=== PATIENT | male | born 1995 | race Caucasian/White ===

== ENCOUNTER 2019-06-12 07:42 | Observation (INO) ==
[2019-06-12] MEDS ORDERED: OLANZapine 10 MG VIAL IM ONE (07:47)
[2019-06-12] MEDS ORDERED: Tdap (Boostrix) Vaccine 0.5 ML SYRINGE IM ONE (07:48)
[2019-06-12 08:42] LABS: Amphetamine Screen,Urine Positive ng/mL (Cutoff=1000); Barbiturate Screen,Urine Negative ng/mL (Cutoff=200); Benzodiazepines Screen,Urine Positive ng/mL (Cutoff=200); Cannabinoid Screen,Urine Positive ng/mL (Cutoff = 50); Cocaine Screen,Urine Negative ng/mL (Cutoff= 300); Opiate Screen,Urine Negative ng/mL (Cutoff=300); Phencyclidine Screen,Urine Negative ng/mL (Cutoff=25)
[2019-06-12 08:43] LABS: Basophils % 0.2 %; Eosinophils % 0.1 %; Hematocrit 44.5 % (37.5-50.1); Hemoglobin 14.6 g/dL (12.9-16.9); Immature Granulocytes % 0.6 % (0-4); Lymphocytes # 3.1 K/mcL (0.6-4.6); Lymphocytes % 19.4 %; Mean Corpuscular HGB Conc 32.8 g/dL (31.6-35.5); Mean Corpuscular Hemoglobin 30.1 pg (28.0-33.3); Mean Corpuscular Volume 91.8 fL (83.0-100.0); Mean Platelet Volume 11.1 fL (9.4-12.4); Monocytes # 1.4 K/mcL (0.0-1.3); Monocytes % 8.4 %; Neutrophils # 11.4 K/mcL (1.6-8.9); Platelet Count 255 K/mcL (140-400); Red Blood Count 4.85 M/mcL (4.19-5.50); Red Cell Distribution Width 12.5 % (11.5-14.5); Segmented Neutrophils % 71.3 %
[2019-06-12 09:00] LABS: Acetaminophen < 10 mcg/mL (10-20); Alanine Aminotransferase 40 Units/L (7-52); Albumin 4.9 g/dL (3.5-5.7); Albumin/Globulin Ratio 2.1 (1.1-2.2); Alkaline Phosphatase 52 Units/L (34-104); Aspartate Amino Transferase 33 Units/L (13-39); BUN/Creatinine Ratio 11 (6-26); Bilirubin,Direct 0.3 mg/dL (0.0-0.2); Bilirubin,Total 1.3 mg/dL (0.3-1.0); Blood Urea Nitrogen 14 mg/dL (6-20); Carbon Dioxide 20 mEq/L (23-29); Chloride 101 mEq/L (98-107); Ethanol < 10 mg/dL (Less than 10); Globulin 2.3 g/dL (2.4-3.5); Glucose 104 mg/dL (70-105); Osmolality,Calculated 279 (280-300); Potassium 3.7 mEq/L (3.5-5.1); Salicylate < 2.5 mg/dL (15.0-30.0); Sodium 134 mEq/L (136-145); Total Protein 7.2 g/dL (6.4-8.9); eGFR For African Americans > 60 (> 60); eGFR For Non-African Americans > 60 (> 60)
[2019-06-12] MEDS ORDERED: haloperidoL 5 MG TABLET PO PRN (16:50)
[2019-06-12] MEDS ORDERED: MOM Conc 10 ML UD.LIQ PO PRN (16:50)
[2019-06-12] MEDS ORDERED: Mag Hydrox/Al Hydrox/Simeth 30 ML UDC PO PRN (16:50)
[2019-06-12] MEDS ORDERED: *HR* LORazepam 2 MG/ML VIAL IM PRN (16:50)
[2019-06-12] MEDS ORDERED: Nicotine 2 MG GUM BC PRN (16:50)
[2019-06-12] MEDS ORDERED: *HR* LORazepam 1 MG TABLET PO PRN (16:50)
[2019-06-12] MEDS ORDERED: Haloperidol Lactate 5 MG/ML VIAL IM PRN (16:50)
[2019-06-12] MEDS ORDERED: traZODone 50 MG TABLET PO PRN (16:50)
[2019-06-12] MEDS ORDERED: Acetaminophen 325 MG TABLET PO PRN (16:50)
[2019-06-12] MEDS: Nicotine 14 MG PATCH.TD24 TD SCH (18:12)
[2019-06-13] MEDS: Nicotine 14 MG PATCH.TD24 TD SCH (11:47)
[2019-06-14 09:09] VITALS: BP 134/79
[2019-06-14] MEDS: Nicotine 14 MG PATCH.TD24 TD SCH (09:14)
== END 2019-06-14 16:40 | disposition home or self-care (01) ==
LOC: 1ANU 07:42 → EMEROOARM 07:42 → 1ANU 17:41
PROVIDERS: ADMIT Psychiatry & Neurology Psychiatry; ATTEND Psychiatry & Neurology Psychiatry

== ENCOUNTER 2019-09-26 06:17 | Inpatient (IN) ==
[2019-09-26 06:58] LABS: Bilirubin,Urine Negative (Negative); Blood,Urine Negative (Negative); Clarity,Urine Clear (Clear); Color,Urine Light-Yellow (Yellow); Glucose,Urine (UA) Normal (Normal); Ketones,Urine Negative (Negative); Leukocyte Esterase,Urine Negative (Negative); Nitrite,Urine Negative (Negative); Protein,Urine Negative (Neg-Trace); Specific Gravity,Urine 1.017 (1.010-1.025); Urobilinogen,Urine Normal (Normal)
[2019-09-26 06:59] LABS: Amphetamine Screen,Urine Negative ng/mL (Cutoff=1000); Barbiturate Screen,Urine Negative ng/mL (Cutoff=200)
[2019-09-26 07:01] LABS: Benzodiazepines Screen,Urine Negative ng/mL (Cutoff=300); Cannabinoid Screen,Urine Positive ng/mL (Cutoff = 50); Cocaine Screen,Urine Negative ng/mL (Cutoff= 300); Opiate Screen,Urine Negative ng/mL (Cutoff=300); Phencyclidine Screen,Urine Negative ng/mL (Cutoff=25)
[2019-09-26 07:18] LABS: Acetaminophen < 10 mcg/mL (10-20); BUN/Creatinine Ratio 9 (6-26); Blood Urea Nitrogen 10 mg/dL (6-20); Calcium 9.8 mg/dL (8.6-10.3); Carbon Dioxide 22 mEq/L (23-29); Chloride 103 mEq/L (98-107); Chol/HDL Ratio 3.5 (0-4.9); Cholesterol 151 mg/dL (< 200); Ethanol < 10 mg/dL (Less than 10); Glucose 133 mg/dL (70-105); HDL Cholesterol 43 mg/dL (40-59); LDL Cholesterol,Calculated 92 mg/dL (< 100); Osmolality,Calculated 289 (280-300); Potassium 3.6 mEq/L (3.5-5.1); Salicylate < 2.5 mg/dL (15.0-30.0); Sodium 139 mEq/L (136-145); Triglycerides 79 mg/dL (< 150); eGFR For African Americans > 60 (> 60); eGFR For Non-African Americans > 60 (> 60)
[2019-09-26 07:39] LABS: Basophils # 0.1 K/mcL (0.0-0.2); Basophils % 0.4 %; Eosinophils # 0.1 K/mcL (0.0-0.6); Eosinophils % 0.5 %; Hematocrit 47.9 % (37.5-50.1); Hemoglobin 16.1 g/dL (12.9-16.9); Immature Granulocytes % 0.7 % (0-4); Lymphocytes # 3.8 K/mcL (0.6-4.6); Lymphocytes % 28.6 %; Mean Corpuscular HGB Conc 33.6 g/dL (31.6-35.5); Mean Corpuscular Hemoglobin 30.1 pg (28.0-33.3); Mean Corpuscular Volume 89.7 fL (83.0-100.0); Mean Platelet Volume 11.2 fL (9.4-12.4); Monocytes # 1.1 K/mcL (0.0-1.3); Monocytes % 7.9 %; Neutrophils # 8.3 K/mcL (1.6-8.9); Platelet Count 302 K/mcL (140-400); Red Blood Count 5.34 M/mcL (4.19-5.50); Red Cell Distribution Width 12.7 % (11.5-14.5); Segmented Neutrophils % 61.9 %; White Blood Count 13.4 K/mcL (4.3-11.1)
[2019-09-26 12:06] LABS: Estimated Average Glucose 131 mg/dl; Hemoglobin A1C 6.2 %
[2019-09-26] MEDS ORDERED: *HR* LORazepam 1 MG TABLET PO PRN (13:54)
[2019-09-26] MEDS ORDERED: *HR* LORazepam 2 MG/ML VIAL IM PRN (13:54)
[2019-09-26] MEDS ORDERED: Mag Hydrox/Al Hydrox/Simeth 30 ML UDC PO PRN (13:54)
[2019-09-26] MEDS ORDERED: Haloperidol Lactate 5 MG/ML VIAL IM PRN (13:54)
[2019-09-26] MEDS ORDERED: Acetaminophen 325 MG TABLET PO PRN (13:54)
[2019-09-26] MEDS ORDERED: haloperidoL 5 MG TABLET PO PRN (13:54)
[2019-09-26] MEDS ORDERED: MOM Conc 10 ML UD.LIQ PO PRN (13:54)
[2019-09-26] MEDS: Nicotine 21 MG PATCH.TD24 TD SCH (16:06)
[2019-09-26 16:35] LABS: Thyroid Stimulating Hormone 4.946 mcIU/mL (0.340-5.600)
[2019-09-27] MEDS: Nicotine 21 MG PATCH.TD24 TD SCH (09:40)
[2019-09-27] MEDS: traZODone 50 MG TABLET PO PRN (21:19)
[2019-09-27] MEDS: hydrOXYzine pamoate 25 MG CAPSULE PO PRN (21:19)
[2019-09-28] MEDS: Nicotine 21 MG PATCH.TD24 TD SCH (08:44)
[2019-09-28] MEDS: hydrOXYzine pamoate 25 MG CAPSULE PO PRN (21:31)
[2019-09-28] MEDS: traZODone 50 MG TABLET PO PRN (21:31)
[2019-09-29] MEDS: Nicotine 21 MG PATCH.TD24 TD SCH (09:48)
[2019-09-29] MEDS: traZODone 50 MG TABLET PO PRN (20:47)
[2019-09-29] MEDS: hydrOXYzine pamoate 25 MG CAPSULE PO PRN (20:47)
[2019-09-30] MEDS: Nicotine 21 MG PATCH.TD24 TD SCH (09:03)
[2019-09-30] MEDS: hydrOXYzine pamoate 25 MG CAPSULE PO PRN (21:01)
[2019-09-30] MEDS: traZODone 50 MG TABLET PO PRN (21:01)
[2019-10-01 09:11] VITALS: BP 135/82
[2019-10-01] MEDS: Nicotine 21 MG PATCH.TD24 TD SCH (09:20)
== END 2019-10-01 16:50 | disposition home or self-care (01) | DRG 753 ==
LOC: EMEROOARM 06:17 → 1ANU 13:51
PROVIDERS: ADMIT Psychiatry & Neurology Psychiatry; ATTEND Psychiatry & Neurology Psychiatry

== ENCOUNTER 2020-01-17 10:00 | Observation (INO) ==
[2020-01-17 11:09] LABS: Basophils # 0.1 K/mcL (0.0-0.2); Basophils % 0.3 %; Eosinophils % 0.1 %; Hematocrit 42.9 % (37.5-50.1); Hemoglobin 14.3 g/dL (12.9-16.9); Immature Granulocytes % 1.2 % (0-4); Mean Corpuscular HGB Conc 33.3 g/dL (31.6-35.5); Mean Corpuscular Hemoglobin 30.4 pg (28.0-33.3); Mean Corpuscular Volume 91.1 fL (83.0-100.0); Monocytes # 1.5 K/mcL (0.0-1.3); Monocytes % 7.7 %; Platelet Count 299 K/mcL (140-400); Red Blood Count 4.71 M/mcL (4.19-5.50); Red Cell Distribution Width 12.7 % (11.5-14.5); Segmented Neutrophils % 75.7 %; White Blood Count 19.7 K/mcL (4.3-11.1)
[2020-01-17 11:33] LABS: Acetaminophen < 10 mcg/mL (10-20); Alanine Aminotransferase 34 Units/L (7-52); Albumin 4.9 g/dL (3.5-5.7); Albumin/Globulin Ratio 1.8 (1.1-2.2); Alkaline Phosphatase 50 Units/L (34-104); Aspartate Amino Transferase 37 Units/L (13-39); BUN/Creatinine Ratio 11 (6-26); Bilirubin,Direct 0.3 mg/dL (0.0-0.2); Bilirubin,Indirect 0.7 mg/dL (0.0-1.0); Blood Urea Nitrogen 14 mg/dL (6-20); Calcium 9.8 mg/dL (8.6-10.3); Carbon Dioxide 19 mEq/L (23-29); Chloride 96 mEq/L (98-107); Chol/HDL Ratio 5.4 (0-4.9); Cholesterol 158 mg/dL (< 200); Creatine Kinase 1065 Units/L (30-223); Ethanol < 10 mg/dL (Less than 10); Globulin 2.7 g/dL (2.4-3.5); Glucose 87 mg/dL (70-105); HDL Cholesterol 29 mg/dL (40-59); LDL Cholesterol,Calculated 107 mg/dL (< 100); Osmolality,Calculated 278 (280-300); Potassium 3.6 mEq/L (3.5-5.1); Salicylate < 2.5 mg/dL (15.0-30.0); Sodium 134 mEq/L (136-145); Total Protein 7.6 g/dL (6.4-8.9); Triglycerides 108 mg/dL (< 150); Troponin I < 0.03 ng/mL (< 0.04); eGFR For African Americans > 60 (> 60); eGFR For Non-African Americans > 60 (> 60)
[2020-01-17 11:37] LABS: Estimated Average Glucose 134 mg/dl
[2020-01-17] MEDS ORDERED: 0.9 % Sodium Chloride 1,000 ML IVC ONE ×2 (11:45→16:32)
[2020-01-17 13:51] LABS: Bilirubin,Urine Negative (Negative); Blood,Urine Negative (Negative); Clarity,Urine Clear (Clear); Color,Urine Light-Yellow (Yellow); Glucose,Urine (UA) Normal (Normal); Ketones,Urine >150 mg/dL (Negative); Leukocyte Esterase,Urine Negative (Negative); Mucus,Urine Few per lpf (None-Few); Nitrite,Urine Negative (Negative); PH,Urine 5.5 pH Units (5.0-8.0); Protein,Urine 50 mg/dL (Neg-Trace); RBC,Urine 0-3 per hpf (0-3); Specific Gravity,Urine 1.028 (1.010-1.025); Squamous Epithelial Cell,Urine Few per hpf (None-Few); Urobilinogen,Urine Normal (Normal); WBC,Urine 0-3 per hpf (0-3)
[2020-01-17 14:00] LABS: Amphetamine Screen,Urine Positive ng/mL (Cutoff=1000); Barbiturate Screen,Urine Negative ng/mL (Cutoff=200); Benzodiazepines Screen,Urine Negative ng/mL (Cutoff=200); Cannabinoid Screen,Urine Positive ng/mL (Cutoff = 50); Cocaine Screen,Urine Negative ng/mL (Cutoff= 300); Opiate Screen,Urine Negative ng/mL (Cutoff=300); Phencyclidine Screen,Urine Negative ng/mL (Cutoff=25)
[2020-01-17] MEDS ORDERED: Haloperidol Lactate 5 MG/ML VIAL IVP PRN (18:01)
[2020-01-17] MEDS ORDERED: Ondansetron 4 MG/2 ML VIAL IVP PRN (18:02)
[2020-01-17] MEDS ORDERED: Naloxone 0.4 MG/ML INJ IVP PRN (18:02)
[2020-01-17] MEDS ORDERED: Ibuprofen 800 MG TABLET PO ONE (18:21)
[2020-01-17] MEDS ORDERED: Acetaminophen 325 MG TABLET PO PRN (20:08)
[2020-01-17] MEDS ORDERED: Nicotine 21 MG PATCH.TD24 TD SCH (20:15)
[2020-01-17] MEDS ORDERED: RisperiDAL 3 MG TABLET PO SCH (21:00)
[2020-01-17] MEDS ORDERED: traZODone 50 MG TABLET PO PRN (22:04)
[2020-01-17] MEDS: *HR* Heparin 5,000 UNIT/ML VIAL SQ SCH (22:25)
[2020-01-17] MEDS: Ringers Solution, Lactated 1,000 ML IVC SCH (22:29)
[2020-01-18] MEDS: Ringers Solution, Lactated 1,000 ML IVC SCH (04:24)
[2020-01-18] MEDS: *HR* Heparin 5,000 UNIT/ML VIAL SQ SCH (05:30)
[2020-01-18 08:14] VITALS: BP 124/86
[2020-01-18 08:28] LABS: Basophils % 0.4 %; Eosinophils # 0.1 K/mcL (0.0-0.6); Hematocrit 40.3 % (37.5-50.1); Hemoglobin 13.4 g/dL (12.9-16.9); Lymphocytes # 2.1 K/mcL (0.6-4.6); Lymphocytes % 30.6 %; Mean Corpuscular HGB Conc 33.3 g/dL (31.6-35.5); Mean Corpuscular Hemoglobin 30.5 pg (28.0-33.3); Mean Corpuscular Volume 91.8 fL (83.0-100.0); Mean Platelet Volume 10.9 fL (9.4-12.4); Monocytes # 0.6 K/mcL (0.0-1.3); Monocytes % 7.9 %; Neutrophils # 4.1 K/mcL (1.6-8.9); Platelet Count 206 K/mcL (140-400); Red Blood Count 4.39 M/mcL (4.19-5.50); Red Cell Distribution Width 12.8 % (11.5-14.5); Segmented Neutrophils % 59.1 %
[2020-01-18 08:47] LABS: BUN/Creatinine Ratio 10 (6-26); Blood Urea Nitrogen 9 mg/dL (6-20); Calcium 8.9 mg/dL (8.6-10.3); Carbon Dioxide 25 mEq/L (23-29); Chloride 102 mEq/L (98-107); Glucose 117 mg/dL (70-105); Osmolality,Calculated 284 (280-300); Potassium 3.4 mEq/L (3.5-5.1); Sodium 137 mEq/L (136-145); eGFR For African Americans > 60 (> 60); eGFR For Non-African Americans > 60 (> 60)
== END 2020-01-18 15:21 ==
LOC: 3BNU 10:00 → EMEROOARM 10:00 → 3BNU 18:55
PROVIDERS: ADMIT Student in an Organized Health Care Education/Training Program; ATTEND Student in an Organized Health Care Education/Training Program

== ENCOUNTER 2020-01-18 15:12 | Inpatient (IN) ==
[2020-01-18] MEDS ORDERED: *HR* LORazepam 2 MG/ML VIAL IM PRN (15:21)
[2020-01-18] MEDS ORDERED: Acetaminophen 325 MG TABLET PO PRN (15:21)
[2020-01-18] MEDS ORDERED: Haloperidol Lactate 5 MG/ML VIAL IM PRN (15:21)
[2020-01-18] MEDS ORDERED: Mag Hydrox/Al Hydrox/Simeth 30 ML UDC PO PRN (15:21)
[2020-01-18] MEDS ORDERED: MOM Conc 10 ML UD.LIQ PO PRN (15:21)
[2020-01-18] MEDS ORDERED: QUEtiapine Fumarate 25 MG TABLET PO PRN (15:21)
[2020-01-18] MEDS ORDERED: *HR* LORazepam 1 MG TABLET PO PRN (15:21)
[2020-01-18] MEDS ORDERED: haloperidoL 5 MG TABLET PO PRN (15:21)
[2020-01-18] MEDS: Nicotine 21 MG PATCH.TD24 TD SCH (18:03)
[2020-01-18] MEDS: RisperiDAL 3 MG TABLET PO SCH (20:27)
[2020-01-18] MEDS: hydrOXYzine pamoate 25 MG CAPSULE PO PRN (20:27)
[2020-01-19] MEDS: Nicotine 21 MG PATCH.TD24 TD SCH (08:35)
[2020-01-19] MEDS ORDERED: Nicotine 21 MG PATCH.TD24 TD SCH (09:00)
[2020-01-19] MEDS: hydrOXYzine pamoate 25 MG CAPSULE PO PRN (20:50)
[2020-01-19] MEDS: RisperiDAL 3 MG TABLET PO SCH (20:50)
[2020-01-20 08:45] VITALS: BP 137/88
[2020-01-20] MEDS: Nicotine 21 MG PATCH.TD24 TD SCH (09:01)
== END 2020-01-20 10:30 | disposition home or self-care (01) | DRG 776 ==
LOC: 1ANU 15:12
PROVIDERS: ADMIT Psychiatry & Neurology Psychiatry; ATTEND Psychiatry & Neurology Psychiatry

== ENCOUNTER 2020-07-28 23:04 | Observation (INO) ==
[2020-07-28] MEDS ORDERED: Haloperidol Lactate 5 MG/ML VIAL IM ONE (23:56)
[2020-07-29 00:30] LABS: Basophils # 0.1 K/mcL (0.0-0.2); Basophils % 0.4 %; Eosinophils # 0.1 K/mcL (0.0-0.6); Eosinophils % 0.7 %; Hematocrit 47.9 % (37.5-50.1); Hemoglobin 16.3 g/dL (12.9-16.9); Immature Granulocytes % 0.5 % (0-4); Lymphocytes # 3.4 K/mcL (0.6-4.6); Lymphocytes % 26.1 %; Mean Corpuscular Hemoglobin 30.5 pg (28.0-33.3); Mean Corpuscular Volume 89.5 fL (83.0-100.0); Monocytes # 1.1 K/mcL (0.0-1.3); Monocytes % 8.1 %; Neutrophils # 8.5 K/mcL (1.6-8.9); Platelet Count 309 K/mcL (140-400); Red Blood Count 5.35 M/mcL (4.19-5.50); Red Cell Distribution Width 12.7 % (11.5-14.5); Segmented Neutrophils % 64.2 %; White Blood Count 13.2 K/mcL (4.3-11.1)
[2020-07-29 00:48] LABS: Acetaminophen < 10 mcg/mL (10-20); BUN/Creatinine Ratio 10 (6-26); Blood Urea Nitrogen 12 mg/dL (6-20); Calcium 9.8 mg/dL (8.6-10.3); Carbon Dioxide 22 mEq/L (23-29); Chloride 101 mEq/L (98-107); Ethanol < 10 mg/dL (Less than 10); Glucose 136 mg/dL (70-105); Osmolality,Calculated 286 (280-300); Potassium 3.9 mEq/L (3.5-5.1); Salicylate < 2.5 mg/dL (15.0-30.0); Sodium 137 mEq/L (136-145); eGFR For African Americans > 60 (> 60); eGFR For Non-African Americans > 60 (> 60)
[2020-07-29 00:50] LABS: Bilirubin,Urine Small (Negative); Blood,Urine Negative (Negative); Clarity,Urine Turbid (Clear); Color,Urine Yellow (Yellow); Glucose,Urine (UA) Normal (Normal); Ketones,Urine Trace mg/dL (Negative); Leukocyte Esterase,Urine Negative (Negative); Mucus,Urine Many per lpf (None-Few); Nitrite,Urine Negative (Negative); Protein,Urine 100 mg/dL (Neg-Trace); RBC,Urine 0-3 per hpf (0-3); Specific Gravity,Urine > 1.030 (1.010-1.025); Squamous Epithelial Cell,Urine Moderate per hpf (None-Few)
[2020-07-29 01:16] LABS: Amphetamine Screen,Urine Positive ng/mL (Cutoff=1000); Barbiturate Screen,Urine Negative ng/mL (Cutoff=200); Benzodiazepines Screen,Urine Negative ng/mL (Cutoff=200); Cannabinoid Screen,Urine Positive ng/mL (Cutoff = 50); Cocaine Screen,Urine Negative ng/mL (Cutoff= 300); Opiate Screen,Urine Negative ng/mL (Cutoff=300); Phencyclidine Screen,Urine Negative ng/mL (Cutoff=25)
[2020-07-29 01:57] LABS: Influenza A PCR Negative (Negative); Influenza B PCR Negative (Negative); Resp. Syncytial Virus PCR Negative (Negative)
[2020-07-29 02:01] LABS: SARS-CoV-2 by PCR (In House) Negative (Negative)
[2020-07-29] MEDS ORDERED: *HR* LORazepam 2 MG/ML VIAL IM PRN (02:39)
[2020-07-29] MEDS ORDERED: hydrOXYzine pamoate 25 MG CAPSULE PO PRN (02:39)
[2020-07-29] MEDS ORDERED: Haloperidol Lactate 5 MG/ML VIAL IM PRN (02:39)
[2020-07-29] MEDS ORDERED: QUEtiapine Fumarate 25 MG TABLET PO PRN (02:39)
[2020-07-29] MEDS ORDERED: haloperidoL 5 MG TABLET PO PRN (02:39)
[2020-07-29] MEDS ORDERED: *HR* LORazepam 1 MG TABLET PO PRN (02:39)
[2020-07-29] MEDS ORDERED: Acetaminophen 325 MG TABLET PO PRN (02:39)
[2020-07-29] MEDS ORDERED: RisperiDONE MICROSPHERES 25 MG/2 ML SYRINGE IM SCH (10:00)
[2020-07-30 09:25] VITALS: BP 155/96
== END 2020-07-30 15:40 | disposition home or self-care (01) ==
LOC: 1ANU 23:04 → EMEROOARM 23:04 → 1ANU 07-29 10:07
PROVIDERS: ADMIT Psychiatry & Neurology Forensic Psychiatry; ATTEND Psychiatry & Neurology Forensic Psychiatry

== ENCOUNTER 2020-11-16 12:49 | Observation (INO) ==
[2020-11-16 14:04] LABS: Basophils # 0.1 K/mcL (0.0-0.2); Basophils % 0.3 %; Eosinophils # 0.1 K/mcL (0.0-0.6); Eosinophils % 0.5 %; Hemoglobin 15.9 g/dL (12.9-16.9); Immature Granulocytes % 0.6 % (0-4); Lymphocytes % 25.6 %; Mean Corpuscular HGB Conc 33.8 g/dL (31.6-35.5); Mean Corpuscular Hemoglobin 30.8 pg (28.0-33.3); Mean Corpuscular Volume 90.9 fL (83.0-100.0); Mean Platelet Volume 11.6 fL (9.4-12.4); Monocytes # 1.1 K/mcL (0.0-1.3); Monocytes % 6.9 %; Neutrophils # 10.2 K/mcL (1.6-8.9); Platelet Count 357 K/mcL (140-400); Red Blood Count 5.17 M/mcL (4.19-5.50); Red Cell Distribution Width 12.7 % (11.5-14.5); Segmented Neutrophils % 66.1 %; White Blood Count 15.4 K/mcL (4.3-11.1)
[2020-11-16 14:24] LABS: Acetaminophen < 10 mcg/mL (10-20); BUN/Creatinine Ratio 9 (6-26); Blood Urea Nitrogen 12 mg/dL (6-20); Calcium 10.4 mg/dL (8.6-10.3); Carbon Dioxide 23 mEq/L (23-29); Chloride 103 mEq/L (98-107); Chol/HDL Ratio 3.7 (0-4.9); Cholesterol 149 mg/dL (< 200); Ethanol < 10 mg/dL (Less than 10); Glucose 130 mg/dL (70-105); HDL Cholesterol 40 mg/dL (40-59); LDL Cholesterol,Calculated 88 mg/dL (< 100); Osmolality,Calculated 294 (280-300); Potassium 3.5 mEq/L (3.5-5.1); Salicylate < 2.5 mg/dL (15.0-30.0); Sodium 141 mEq/L (136-145); Triglycerides 105 mg/dL (< 150); eGFR For African Americans > 60 (> 60); eGFR For Non-African Americans > 60 (> 60)
[2020-11-16 14:26] LABS: Amorphous Sediment,Urine Few per hpf (None-Few); Bacteria,Urine Few per hpf (None-Few); Bilirubin,Urine Negative (Negative); Blood,Urine Negative (Negative); Clarity,Urine Turbid (Clear); Color,Urine Yellow (Yellow); Glucose,Urine (UA) Normal (Normal); Hyaline Casts,Urine Moderate per lpf (None Seen); Ketones,Urine Trace mg/dL (Negative); Leukocyte Esterase,Urine Negative (Negative); Mucus,Urine Many per lpf (None-Few); Nitrite,Urine Negative (Negative); Protein,Urine 100 mg/dL (Neg-Trace); Specific Gravity,Urine > 1.030 (1.010-1.025); Squamous Epithelial Cell,Urine Moderate per hpf (None-Few)
[2020-11-16 14:44] LABS: Amphetamine Screen,Urine Positive ng/mL (Cutoff=1000); Barbiturate Screen,Urine Negative ng/mL (Cutoff=200); Benzodiazepines Screen,Urine Negative ng/mL (Cutoff=200); Cannabinoid Screen,Urine Positive ng/mL (Cutoff = 50); Cocaine Screen,Urine Negative ng/mL (Cutoff= 300); Opiate Screen,Urine Negative ng/mL (Cutoff=300); Phencyclidine Screen,Urine Negative ng/mL (Cutoff=25)
[2020-11-16 14:46] LABS: Estimated Average Glucose 131 mg/dl; Hemoglobin A1C 6.2 %
[2020-11-16] MEDS ORDERED: Ziprasidone 20 MG, Closed System Device IM Kit 1 EACH in Water for inj. (sterile) 1 ML IM ONE (15:56)
[2020-11-16] MEDS ORDERED: Ziprasidone 20 MG/VIAL VIAL IM ONE (16:09)
[2020-11-16] MEDS ORDERED: Water for inj. (sterile) 10 ML ONE (16:09)
[2020-11-18] MEDS ORDERED: Nicotine 21 MG PATCH.TD24 TD PRN (10:13)
[2020-11-18] MEDS ORDERED: Mag Hydrox/Al Hydrox/Simeth 30 ML UDC PO PRN (10:13)
[2020-11-18] MEDS ORDERED: Ibuprofen 400 MG TABLET PO PRN (10:13)
[2020-11-18] MEDS ORDERED: haloperidoL 5 MG TABLET PO PRN (10:13)
[2020-11-18] MEDS ORDERED: *HR* LORazepam 2 MG/ML VIAL IM PRN (10:13)
[2020-11-18] MEDS ORDERED: QUEtiapine Fumarate 25 MG TABLET PO PRN (10:13)
[2020-11-18] MEDS ORDERED: *HR* LORazepam 1 MG TABLET PO PRN (10:13)
[2020-11-18] MEDS ORDERED: hydrOXYzine pamoate 25 MG CAPSULE PO PRN (10:13)
[2020-11-18] MEDS ORDERED: MOM Conc 10 ML UD.LIQ PO PRN (10:13)
[2020-11-18] MEDS ORDERED: Haloperidol Lactate 5 MG/ML VIAL IM PRN (10:13)
[2020-11-18 21:25] VITALS: O2SAT 97
[2020-11-19 10:42] VITALS: BP 140/116; PULSE 98; TEMP 98.3
== END 2020-11-19 12:30 | disposition home or self-care (01) ==
LOC: EMEROOARM 12:49 → 1ANU 11-18 10:33 → INTOOBSV 11-18 10:33 → 1ANU 11-18 11:09
PROVIDERS: ADMIT Psychiatry & Neurology Psychiatry; ATTEND Psychiatry & Neurology Psychiatry